=== PATIENT | male | born 1950 | race Caucasian/White ===

== ENCOUNTER 2021-11-09 17:57 | Inpatient (IN) ==
[2021-11-09] MEDS ORDERED: 0.9 % Sodium Chloride 2,000 ML ONE (18:18)
[2021-11-09] MEDS ORDERED: *HR* Heparin 10,000 UNIT/10 ML VIAL ONE (18:19)
[2021-11-09] MEDS ORDERED: Heparin 1,000 UNITS/500 mL 500 ML ONE (18:19)
[2021-11-09] MEDS ORDERED: Nitroglycerin 1,000 MCG/5 ML VIAL IV ONE (18:19)
[2021-11-09] MEDS ORDERED: Iopamidol - 370 200 ML INFUS..BTL ONE ×2 (18:19→19:12)
[2021-11-09] MEDS ORDERED: *HR* Midazolam HCl 2 MG/2 ML VIAL ONE (18:34)
[2021-11-09] MEDS ORDERED: *HR* FentaNYL (PF) 100 MCG/2 ML VIAL ONE (18:34)
[2021-11-09] MEDS ORDERED: Tirofiban 12.5 MG/250ML 12.5 MG/250 ML BAG ONE (19:15)
[2021-11-09] MEDS ORDERED: *HR* Atropine Sulfate 1 MG/10 ML SYRINGE ONE (19:18)
[2021-11-09] MEDS ORDERED: Ondansetron 4 MG/2 ML VIAL ONE (19:21)
[2021-11-09] MEDS ORDERED: Furosemide 40 MG/4 ML VIAL ONE ×2 (19:23→19:44)
[2021-11-09] MEDS ORDERED: niCARdipine 20 MG/200 ML MLS IVC ONE (19:23)
[2021-11-09] MEDS ORDERED: Heparin 25,000UNIT/250ML 1/2NS 25,000 UNIT/250 ML IV.SOLN IVC SCH (19:45)
[2021-11-09] MEDS ORDERED: Perflutren Lipid Microsphere 1.3 ML in 0.9 % Sodium Chloride 8.7 ML IVP PRN (19:45)
[2021-11-09] MEDS ORDERED: 0.9 % Sodium Chloride 500 ML ONE (20:09)
[2021-11-09] MEDS: lisinopriL 10 MG TABLET PO SCH (21:28)
[2021-11-10 04:32] LABS: Basophils # 0.1 K/mcL (0.0-0.2); Basophils % 0.8 %; Eosinophils # 0.1 K/mcL (0.0-0.6); Eosinophils % 0.3 %; Hematocrit 45.6 % (37.5-50.1); Hemoglobin 15.2 g/dL (12.9-16.9); Immature Granulocytes % 0.5 % (0-4); Lymphocytes # 1.1 K/mcL (0.6-4.6); Lymphocytes % 6.3 %; Mean Corpuscular HGB Conc 33.3 g/dL (31.6-35.5); Mean Corpuscular Hemoglobin 28.6 pg (28.0-33.3); Mean Corpuscular Volume 85.7 fL (83.0-100.0); Mean Platelet Volume 11.8 fL (9.4-12.4); Monocytes # 2.3 K/mcL (0.0-1.3); Monocytes % 13.5 %; Neutrophils # 13.5 K/mcL (1.6-8.9); Platelet Count 155 K/mcL (140-400); Red Blood Count 5.32 M/mcL (4.19-5.50); Segmented Neutrophils % 78.6 %; White Blood Count 17.1 K/mcL (4.3-11.1)
[2021-11-10 04:51] LABS: BUN/Creatinine Ratio 19 (6-26); Blood Urea Nitrogen 23 mg/dL (8-23); Calcium 9.7 mg/dL (8.6-10.3); Carbon Dioxide 21 mEq/L (23-29); Chloride 101 mEq/L (98-107); Glucose 118 mg/dL (70-105); Osmolality,Calculated 281 (280-300); Potassium 3.8 mEq/L (3.5-5.1); Sodium 133 mEq/L (136-145); eGFR For African Americans > 60 (> 60); eGFR For Non-African Americans 60 (> 60)
[2021-11-10] MEDS ORDERED: *HR* Heparin 5,000 UNIT/ML VIAL IVP PRN ×2 (05:30)
[2021-11-10] MEDS: lisinopriL 10 MG TABLET PO SCH (08:29)
[2021-11-10] MEDS: Aspirin 81 MG TAB.CHEW PO SCH (08:29)
[2021-11-10] MEDS: *HR* Ticagrelor 90 MG TABLET PO SCH ×2 (08:29→20:24)
[2021-11-10] MEDS ORDERED: Metoprolol XL (24 HR) Succ 25 MG TAB.ER.24H PO SCH (09:00)
[2021-11-10] MEDS ORDERED: *HR* OxyCODONE/APAP 5/325 TABLET PO PRN (12:06)
[2021-11-10] MEDS ORDERED: *HR* Atropine Sulfate 1 MG/10 ML SYRINGE ONE (12:09)
[2021-11-10] MEDS: Spironolactone 25 MG TABLET PO SCH (16:46)
[2021-11-10] MEDS: *HR* Heparin 5,000 UNIT/ML VIAL SQ SCH (16:49)
[2021-11-10] MEDS: Metoprolol XL (24 HR) Succ 25 MG TAB.ER.24H PO SCH (20:22)
[2021-11-11 04:01] LABS: Basophils # 0.1 K/mcL (0.0-0.2); Basophils % 1.1 %; Eosinophils # 0.2 K/mcL (0.0-0.6); Eosinophils % 1.9 %; Hematocrit 48.9 % (37.5-50.1); Hemoglobin 15.7 g/dL (12.9-16.9); Immature Granulocytes % 0.7 % (0-4); Lymphocytes # 1.3 K/mcL (0.6-4.6); Lymphocytes % 9.6 %; Mean Corpuscular HGB Conc 32.1 g/dL (31.6-35.5); Mean Corpuscular Hemoglobin 27.9 pg (28.0-33.3); Mean Corpuscular Volume 86.9 fL (83.0-100.0); Mean Platelet Volume 11.5 fL (9.4-12.4); Monocytes # 1.4 K/mcL (0.0-1.3); Monocytes % 10.7 %; Neutrophils # 9.9 K/mcL (1.6-8.9); Platelet Count 166 K/mcL (140-400); Red Blood Count 5.63 M/mcL (4.19-5.50); Red Cell Distribution Width 14.8 % (11.5-14.5)
[2021-11-11 04:25] LABS: BUN/Creatinine Ratio 28 (6-26); Blood Urea Nitrogen 31 mg/dL (8-23); Calcium 9.9 mg/dL (8.6-10.3); Carbon Dioxide 21 mEq/L (23-29); Chloride 102 mEq/L (98-107); Glucose 100 mg/dL (70-105); Osmolality,Calculated 281 (280-300); Potassium 3.7 mEq/L (3.5-5.1); Sodium 132 mEq/L (136-145); eGFR For African Americans > 60 (> 60); eGFR For Non-African Americans > 60 (> 60)
[2021-11-11] MEDS: *HR* Heparin 5,000 UNIT/ML VIAL SQ SCH (06:15)
[2021-11-11 06:26] VITALS: O2SAT 96
[2021-11-11 07:41] VITALS: BP 150/61; TEMP 98
[2021-11-11] MEDS: Aspirin 81 MG TAB.CHEW PO SCH (08:19)
[2021-11-11] MEDS: Spironolactone 25 MG TABLET PO SCH (08:19)
[2021-11-11] MEDS: lisinopriL 10 MG TABLET PO SCH (08:19)
[2021-11-11] MEDS: *HR* Ticagrelor 90 MG TABLET PO SCH (08:19)
[2021-11-11] MEDS: Metoprolol XL (24 HR) Succ 25 MG TAB.ER.24H PO SCH (08:19)
[2021-11-11 08:59] VITALS: PULSE 72
[2021-11-11] MEDS ORDERED: lisinopriL 10 MG TABLET PO SCH (09:00)
== END 2021-11-11 12:24 | disposition home or self-care (01) | DRG 246 ==
LOC: ICNU 20:00 → 2NNU 11-10 18:54
PROVIDERS: ADMIT Internal Medicine Interventional Cardiology; ATTEND Internal Medicine Interventional Cardiology